=== PATIENT | male | born 1940 | race African-American/Black ===

== ENCOUNTER 2018-09-25 08:48 | Observation (INO) | payer OTHER ==
[~2018-09-25] VITALS: Ht 177.8 cm; Wt 59.6 kg
[~2018-09-25 08:48] MED LIST: AMLODIPINE BESY10 MG PO; ASPIR 8181 MG PO; BENZONATATE100 MG PO; GABAPENTIN100 MG PO; LISINOPRIL40 MG PO; MONTELUKAST SOD10 MG PO; PRAVASTATIN SOD40 MG PO
--- OUTSIDE RECORDS SUMMARY | 2018-09-25 08:51 | XMS REPORT | Clinical Summary ---
Author Author [facility] Organization [facility] Address Unknown Phone Unavailable Care Team Providers Care Research And Development Technician Name Role Phone Antonietta Smith MD PCP Allergies Not on File Medications Not on file Active Problems Not on file Encounters Care Team Description Date Type Specialty Johnnie Bender MD BPH with obstruction/lower urinary tract symptoms (Primary Dx) 08/19/2018 Transcribe Access Orders after 09/24/2017 Social History Date Tobacco Use Types Packs/Day Years Used Never Assessed Sex Assigned at Date Recorded Not on file Industry Job Start Date Occupation Not on file Not on file Not on file Travel End Travel History Travel Start No recent travel history available. Last Filed Vital Signs Not on file Plan of Treatment Health Maintenance Due Date Last Done Comments SHINGLES VACCINES (#1) 1989 65+ PNEUMOCOCCAL VACCINE 2004 (1 of 2 - PCV13) PNEUMOCOCCAL 2004 POLYSACCHARIDE VACCINE AGE 65 AND OVER INFLUENZA VACCINE 01/30/2018 Procedures Comments Procedure Name Priority Date/Time Associated Diagnosis US PROSTATE Routine 09/17/2018 BPH with 4:47 PM CDT obstruction/lower urinary tract symptoms US RENAL Routine 09/17/2018 BPH with 12:40 PM CDT obstruction/lower urinary tract symptoms after 09/24/2017 Results * US Prostate (09/17/2018 4:47 PM CDT) Narrative Performed At EXAMINATION:US PROSTATE [facility] CLINICAL HISTORY:N40.1 Benign prostatic hyperplasia with lower urinary tract symptoms, N13.8 Other obstructive and reflux uropathy, n40.1 bph lower obstruction COMPARISON:None. IMPRESSION: Prostate gland measures 4.4 x 2.8 x 4.8 cm. Calculated volume is approximately 30.7 cc. Prostate gland appears heterogeneous. There is some enlargement of the transitional zone compatible with BPH. There is also a small 4 mm cyst within it. No definite focal peripheral zone abnormality is seen. Seminal vesicles are sonographically normal. [id number] Procedure Note Interface, Radiology Results Incoming - 09/17/2018 5:00 PM CDT EXAMINATION: US PROSTATE CLINICAL HISTORY: N40.1 Benign prostatic hyperplasia with lower urinary tract symptoms, N13.8 Other obstructive and reflux uropathy, n40.1 bph lower obstruction COMPARISON: None. IMPRESSION: Prostate gland measures 4.4 x 2.8 x 4.8 cm. Calculated volume is approximately 30.7 cc. Prostate gland appears heterogeneous. There is some enlargement of the transitional zone compatible with BPH. There is also a small 4 mm cyst within it. No definite focal peripheral zone abnormality is seen. Seminal vesicles are sonographically normal. [id number] Performing Organization Address City/State/Zipcode Phone Number [facility] [address] [place] [address] * US Renal (09/17/2018 12:40 PM CDT) Narrative Performed At EXAMINATION:US RENAL [facility] CLINICAL HISTORY:N40.1 Benign prostatic hyperplasia with lower urinary tract symptoms, N13.8 Other obstructive and reflux uropathy, bph lower obstruction COMPARISON:None. IMPRESSION: The right kidney is surgically absent. The left kidney rrpysaln37.9 cm in length. There are 2 cysts in the left kidney which measure 12 mm and 8 mm respectively. There is a small 3 mm calculus. There is no hydronephrosis. Echogenicity is normal. Prevoid bladder volume is 143 cc. Post void images demonstrate complete emptying of the bladder. 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 IMPRESSION: The right kidney is surgically absent. The left kidney measures 11.9 cm in length. There are 2 cysts in the left kidney which measure 12 mm and 8 mm respectively. There is a small 3 mm calculus. There is no hydronephrosis. Echogenicity is normal. Prevoid bladder volume is 143 cc. Post void images demonstrate complete emptying of the bladder. [id number] Performing Organization Address City/State/Zipcode Phone Number [facility] [address] [place] [address] after 09/24/2017 Insurance Payer Benefit Subscriber ID Type Phone Address Plan / Group HUMANA MEDICARE HUMANA xxxxxxxxx PPO MEDICARE PPO/PFFS/E [facility] ([place]) [place] [address] Advance Directives Patient has advance care planning documents on file. For more information, james sethi contact: Aleksander Huggins [address] [place] [address]
[2018-09-25] MEDS ORDERED: HYOSCYAMINE 0.125 MG TAB ONE (09:10)
[2018-09-25] MEDS ORDERED: LEVOFLOXACIN 500MG/D5W 100ML 100 ML IV ONE (09:10)
[2018-09-25] MEDS ORDERED: IOPAMIDOL 610MG/1ML 300 MG/ML VIAL IV ONE (09:12)
[2018-09-25] MEDS ORDERED: LATANOPROST2.5 ML OP (09:13)
--- OUTSIDE RECORDS SUMMARY | 2018-09-25 11:58 | XMS REPORT | Clinical Summary ---
Author Author [facility] Address Unknown Phone Unavailable Care Team Providers Care Machine Repairman Name Role Phone Antonietta Smith MD PCP [...] is seen. Seminal vesicles are sonographically normal. [id number] Procedure Note Interface, Radiology Results Incoming - [...] is seen. Seminal vesicles are sonographically normal. [id number] Performing Organization Address City/State/Zipcode Phone Number [facility] [address] [place] [address] * US Renal (09/17/2018 12:40 PM CDT) Narrative Performed At EXAMINATION:US RENAL [facility] CLINICAL HISTORY:N40.1 Benign prostatic hyperplasia with lower urinary tract symptoms, N13.8 Other obstructive and reflux uropathy, bph lower obstruction COMPARISON:None. IMPRESSION: The right kidney is surgically absent. The left kidney aomovjry00.9 cm in length. There are 2 cysts in the left kidney which measure 12 mm and 8 mm respectively. There is a small 3 mm calculus. There is no hydronephrosis. Echogenicity is normal. Prevoid bladder volume is 143 cc. Post void images demonstrate complete emptying of the bladder. [id number] Procedure Note [facility], Radiology Results - 09/17/2018 12:59 PM [...] images demonstrate complete emptying of the bladder. [facility] [id number] Performing Organization Address City/State/Zipcode Phone Number [facility] [address] [place] [address] after 09/24/2017 Insurance Payer Benefit Subscriber ID Type Phone Address Plan / Group HUMANA MEDICARE HUMANA xxxxxxxxx PPO MEDICARE PPO/PFFS/E [facility] ([place]) [place] [address] Advance Directives Patient has advance care planning documents on file. For more information, james sethi contact: Aleksander Huggins [phone] [place] [address]
--- NOTE | 2018-09-25 12:11 | NUR ---
report received from Joyce in PACU. Patient to arrive on floor via stretcher
--- NOTE | 2018-09-25 12:17 | NUR ---
patient arrived on unit via stretcher, alert and oriented. Call bustillo within reach and bed in lowest position.
[2018-09-25 12:25] VITALS: BP 124/60
[2018-09-25 12:28] VITALS: BP 124/60
[2018-09-25 12:31] VITALS: BP 124/60
[2018-09-25] MEDS ORDERED: HYDROMORPHONE 1MG/1ML INJ IV PRN (12:45)
[2018-09-25] MEDS ORDERED: ONDANSETRON HCL INJ 2MG/ML 2ML 2 MG/ML VIAL IV PRN (12:45)
[2018-09-25] MEDS ORDERED: HYDROMORPHONE 2MG/ML 2 MG/ML ML IV PRN (13:15)
[2018-09-25] MEDS ORDERED: ONDANSETRON HCL INJ 2MG/ML 2ML 2 MG/ML VIAL ONE (13:24)
[2018-09-25] MEDS ORDERED: DEXAMETHASONE SOD PHOS INJ 4 MG/ML VIAL ONE (13:24)
[2018-09-25] MEDS ORDERED: LIDOCAINE HCL 2% LOCAL INJ 5 ML SDV VIAL INJ ONE (13:24)
[2018-09-25] MEDS ORDERED: SEVOFLURANE INHAL SOLN 250 ML PEN BTL ONE (13:24)
[2018-09-25] MEDS ORDERED: ACETAMINOPHEN 1000 MG/100 ML IV ONE (13:24)
[2018-09-25] MEDS ORDERED: PROPOFOL IV EMULSION 10 MG/ML 20 ML VIAL ONE (13:24)
--- NOTE | 2018-09-25 13:54 | Operative Report ---
DATE OF PROCEDURE: 09/25/2018 SURGEON: Johnnie Bender MD PREOPERATIVE DIAGNOSIS: Benign prostatic hypertrophy. POSTOPERATIVE DIAGNOSIS: Benign prostatic hypertrophy. OPERATION: 1. Cystourethroscopy. 2. Transurethral resection of the prostate, XPS laser. EXCELSIOR MACHINE TENDER: ANESTHESIA: General. DESCRIPTION OF PROCEDURE: Mr. Jackson is a 78-year-old male, who presented with a chief complaint of lower urinary tract obstructive symptoms. Workup showed that he has an enlarged occlusive prostatic gland with markedly trabeculated bladder. This patient was placed on the table in the lithotomy position and was prepped and draped in a sterile manner after satisfactory anesthesia. A #23-[place] cystoresectoscope was used and cystourethroscopy was performed and confirmed the previous cystoscopic findings. The XPS laser scope generator was then started starting at 120 dillard vaporization level and 40 dillard coagulation levels. Vaporization was then started starting at 11 o'clock to 7 o'clock position starting at the bladder neck to just proximal to the verumontanum and down to the capsular fibers. Hemostasis was obtained all through and was very adequate. Vaporization was then started starting again from 1 o'clock to 5 o'clock starting again at the bladder neck to just proximal to the verumontanum and down to the capsular fibers. Again, hemostasis was obtained and was very adequate. Finally, the anterior tissue was vaporized and hemostasis was again very stable. At the termination of the procedure, the bladder neck, both ureteral orifices and external sphincter and the bladder mucosa were intact without laser energy damage. The laser scope generator was shut down, the cystoresectoscope was removed and a #22-[place] Mari catheter was placed. Estimated blood loss was 0 mL. Johnnie Bender MD MA/WILLIAM /[id number]
[2018-09-25 15:55] VITALS: BP 122/62
--- NOTE | 2018-09-25 19:00 | NUR ---
rounded with shift foreman nurse, patient aware of change and in no distress. call bustillo within reach and bed in lowest position
[2018-09-25] MEDS ORDERED: FENTANYL CITRATE/PF 100MCG/2 ML INJ ONE (19:34)
[2018-09-25] MEDS ORDERED: MIDAZOLAM HCL 2 MG/2 ML VIAL ONE (19:34)
[2018-09-25 20:42] VITALS: BP 139/68
[2018-09-25 23:35] VITALS: BP 139/68
[2018-09-26 00:49] VITALS: BP 146/69
[2018-09-26 04:37] VITALS: BP 127/68
[2018-09-26 06:03] LABS: BASOPHILS % 0.2 % (0.0-1.0); EOSINOPHILS # (AUTO) 0.2 (0.0-0.4); EOSINOPHILS % 2.3 % (0.0-6.0); HEMATOCRIT 30.7 % (38.2-49.6); HEMOGLOBIN 9.8 g/dL (14.0-18.0); LYMPHOCYTES # (AUTO) 1.2 (1.0-3.2); LYMPHOCYTES % 14.4 % (18.0-39.1); MEAN CORPUSCULAR HEMOGLOBIN 29.4 pg (28-32); MEAN CORPUSCULAR HGB CONC 31.9 g/dL (31-35); MEAN CORPUSCULAR VOLUME 92.2 fL (81-99); MONOCYTES # (AUTO) 0.9 (0.2-0.8); MONOCYTES % 10.9 % (4.4-11.3); NEUTROPHILS # (AUTO) 5.9 (2.1-6.9); NEUTROPHILS % 71.6 % (38.7-80.0); PLATELET COUNT 269 x10e3/uL (140-360); RED BLOOD COUNT 3.33 x10e6/uL (4.3-5.7); RED CELL DISTRIBUTION WIDTH 14.3 % (11.7-14.4)
[2018-09-26 06:14] LABS: ANION GAP 10.3 mmol/L (8-16); BLOOD UREA NITROGEN 21 mg/dL (7-26); BUN/CREATININE RATIO 18 (6-25); CALCIUM 9.2 mg/dL (8.4-10.2); CARBON DIOXIDE 27 mmol/L (22-29); CHLORIDE 104 mmol/L (98-107); CREATININE, SERUM 1.14 mg/dL (0.72-1.25); EST GLOMERULAR FILTRATION RATE > 60 ML/MIN (60-); GLUCOSE 110 mg/dL (74-118); POTASSIUM 4.3 mmol/L (3.5-5.1); SODIUM 137 mmol/L (136-145)
[2018-09-26 08:32] VITALS: BP 127/64
[2018-09-26 08:35] VITALS: BP 127/64
[2018-09-26] MEDS ORDERED: LEVOFLOXACIN 500MG/D5W 100ML 100 ML IV SCH (09:00)
--- NOTE | 2018-09-26 11:33 | NUR ---
bermudez removed at this time, 40 cc removed from balloon prior to removal. patient tolerated well.
[2018-09-26 11:56] VITALS: BP 126/69
== END 2018-09-26 15:20 | disposition home or self-care (01) ==
LOC: OR 08:48 → PACU V 11:00 → IMCU 12:20
PROVIDERS: ADMIT Specialist; ATTEND Specialist
DX: N40.1 Benign prostatic hyperplasia with lower urinary tract symptoms (principal); N13.8 Other obstructive and reflux uropathy; E11.9 Type 2 diabetes mellitus without complications; I10 Essential (primary) hypertension
CPT/HCPCS: 36415 ×2; 52648; 80048; 82948 ×2; 85025; 93005; G0378 ×2; J0131; J1100; J1956 ×2; J2001; J2250; J2405; J2704